=== PATIENT | male | born 1995 | race Two or more races ===

== ENCOUNTER 2021-10-15 07:00 | Outpatient (CLI) | payer OTHER | END 2021-10-15 07:15 | disposition home or self-care (01) | LOC: PPH VACUNA 07:00 | PROVIDERS: ATTEND Emergency Medicine Pediatric Emergency Medicine | DX: Z23 Encounter for immunization (principal) ==

== ENCOUNTER 2023-07-13 08:23 | Emergency (ER) | payer OTHER ==
[~2023-07-13] VITALS: Ht 180.3 cm; Wt 69.4 kg
[2023-07-13] MEDS ORDERED: DOLOGEN CAPLET1 EACH PO (10:20)
[2023-07-13] MEDS ORDERED: PAXLOVID 300-11 EACH PO (10:20)
[2023-07-13] MEDS ORDERED: TUSNEL LIQUID178 ML PO (10:20)
== END 2023-07-13 10:40 | disposition home or self-care (01) ==
LOC: ER 08:23
PROVIDERS: General Practice
DX: U07.1 COVID-19 (principal); B34.9 Viral infection, unspecified